=== PATIENT | male | born 1965 | race Caucasian/White ===

== ENCOUNTER 2017-01-03 14:19 | Observation (INO) | payer BC ==
[2017-01-03] MEDS: Sodium Chloride 0.9% 1000 ML 1,000 ML IV SCH ×3 (15:32→20:17)
[2017-01-03] MEDS: Levofloxacin 500MG/100ML D5W 100 ML IV SCH (15:37)
[2017-01-03] MEDS: solu-MEDROL 40 MG IV SCH ×2 (17:03→23:43)
[2017-01-03] MEDS: FLAGYL 500 MG IVPB 100 ML IV SCH ×2 (17:03→23:37)
--- NOTE | 2017-01-03 17:07 | XRAY ---
Indication: Lower abdominal/pelvic pain for 3-4 weeks. Diarrhea. Multiple contiguous axial images obtained through the abdomen and pelvis prior to and following 80 cc Isovue 370 contrast only. Comparison: None Lung bases demonstrates minimal bibasilar dependent atelectasis. Right base calcified granuloma. Heart is not enlarged. Noncontrasted images through the abdomen are negative for pathologic visceral calcifications/calculi. Noncontrasted stomach and bowel loops appear nonobstructed. There is mild scattered colonic fecal debris predominantly in the ascending, transverse, and proximal descending colon. Moderate circumferential wall thickening seen of the distal descending, entire sigmoid, and rectum favoring colitis. No free fluid/air. Postcontrast images demonstrates normal visceral enhancement and renal excretion. Remaining liver, gallbladder, pancreas, spleen, adrenal glands, kidneys, ureters, bladder, and aorta appear unremarkable. No pathologic retroperitoneal lymphadenopathy. Osseous structures intact with lumbosacral junction degenerative disc disease. Small fatty right inguinal hernia. Impression: 1. Noncontrast images negative for pathologic visceral calcifications/calculi. 2. CT features favoring descending, sigmoid, and rectal colitis. No perforation or complications. 3. Incidental fecal stasis and small fatty right inguinal hernia. CTDI 22.48
[2017-01-03] MEDS ORDERED: MEDICATION INTERVENTION MC PRN (17:24)
--- NOTE | 2017-01-03 18:19 | PCM.HP ---
History of Present Illness - Chief Complaint Chief Complaint: Dehydration History of Present Illness: is a 51 year old male pt with ulcerative colitis since 2001 who was doing well until Oct of this year. He started having increased stools up to 15/ day with increased bleeding. He did labs and started on po steroids, written by Dr. Dueñas GI in [place]. 6d ago he increased his steroid dose per Dr. Dueñas to 40mg prednisone daily and felt a little better over the weekend with firmer stools. He slept a lot over the weekend. This week continued with fatigue, had lower abd pain 5/10 with eating. Fever today to 101.7 so labs done (ordered by [facility]) and creatinine elevated. He was admitted for IV fluids and IV antibiotics. CT ab'd/pelvis is pending. - Review of Systems Constitutional: Fever Abdominal/Gastrointestinal: Abdominal Pain, Diarrhea, Hematochezia, Appetite Changes All Other Systems: Reviewed and Negative Medications & Allergies Home Medications: Home Medication List Atorvastatin Calcium [Lipitor] 10 mg PO DAILY 01/03/17 [History Confirmed ] Azathioprine [Imuran] 50 mg PO TID 01/03/17 [History Confirmed 01/03/17] Gemfibrozil 600 mg [Lopid 600 mg] 600 mg PO BID 01/03/17 [History Confirmed 01/03/17] Hyoscyamine Sulfate 0.125 mg [Anaspaz 0.125 mg] 0.125 mg PO Q4-6HPRN PRN [History Confirmed 01/03/17] Omeprazole 20 MG [Prilosec 20 mg] 20 mg PO DAILY 01/03/17 [History Confirmed ] Prednisone 20 mg [Deltasone 20 mg] 40 mg PO DAILY 01/03/17 [History Confirmed 01/03/17] Turmeric Root Extract [Turmeric] 250 mg PO TID 01/03/17 [History Confirmed 01/03] Allergies/Adverse Reactions: Allergies Allergy/AdvReac Type Severity Reaction Status Date / Time No Known Drug Allergies Allergy Verified 01/03/17 14:49 - Past Medical History Neurological History: No Pertinent History ENT History: No Pertinent History Cardiac History: High Cholesterol Respiratory History: No Pertinent History Endocrine Medical History: No Pertinent History Musculoskelatal History: No Pertinent History GI Medical History: Other History: No Pertinent History Pyscho-Social History: No Pertinent History Male Reproductive Disorders: No Pertinent History Comment: Ulcerative Colitis - Past Surgical History Past Surgical History: No - Social History Smoking Status: Former smoker Exposure to second hand smoke: No Alcohol: None Drug Use: none - Physical Exam Vital Signs: Vital Signs - 24 hr Temp Pulse Resp BP Pulse Ox 01/03/17 16:00 97.5 F 71 19 124/70 96 01/03/17 14:50 97.5 F 71 124/70 96 General Appearance: no apparent distress Neurologic Exam: alert, cooperative Eye Exam: eyes nml inspection Neck Exam: non-tender, supple, No lymphadenopathy Respiratory Exam: chest tenderness, lungs clear, No crackles/rales, No rhonchi, No wheezing Cardiovascular Exam: regular rate/rhythm, normal heart sounds, No murmur Gastrointestinal/Abdomen Exam: soft, other (hyperactive bowel sounds), No tenderness, No distention, No mass, No guarding Extremity Exam: normal inspection, No pedal edema, No swelling Skin Exam: normal color, warm, dry, No rash Results - Labs Lab/Micro Results: Lab Results-Last 24 Hours 01/03/17 Range/Units 15:33 Stl C. diff Tox B Gene NEGATIVE (NEGATIVE) C.difficile 027-[id number] PRESUMPTIVE NEGATIVE (NEGATIVE) - Radiology Impressions Radiology Exams & Impressions: Radiology Procedures Category Date Time Status ABDOMEN AND PELVIS W&WO CONTRA [CT] Urgent Exams 01/03/17 15:48 Completed Assessment/Plan (1) Ulcerative colitis Current Visit: Yes Status: Acute Assessment & Plan: treating for acute flare on chronic dz. IV flagyl and levaquin; IV solumedrol.wiht abd pain; ct pending then I will contact Dr. Dueñas. Code(s): K51.90 - ULCERATIVE COLITIS, UNSPECIFIED, WITHOUT COMPLICATIONS (2) Dehydration Current Visit: Yes Status: Acute Assessment & Plan: IV fluids. Code(s): E86.0 - DEHYDRATION (3) Renal insufficiency Current Visit: Yes Status: Acute Assessment & Plan: rechedck in a.m. (4) Hyperkalemia Current Visit: Yes Status: Acute Assessment & Plan: mild; recheck in a.m. Code(s): E87.5 - HYPERKALEMIA
[2017-01-03] MEDS ORDERED: AZATHIOPRINE 50 MG PO SCH (22:00)
[2017-01-04] MEDS: FLAGYL 500 MG IVPB 100 ML IV SCH ×2 (05:00→11:33)
[2017-01-04] MEDS: solu-MEDROL 40 MG IV SCH (05:00)
[2017-01-04] MEDS: Sodium Chloride 0.9% 1000 ML 1,000 ML IV SCH (05:09)
[2017-01-04 05:47] LABS: Mean Cell Volume 85.8 fl (78-100); Mean Platelet Volume 8.6 fl (6-9.5); Platelet Count 330 K/mm3 (150-450); Red Blood Count 4.51 M/mm3 (4.1-5.6); Red Cell Distribution Width 13.8 % (11.5-14.0); White Blood Count 7.8 K/mm3 (4.0-10.5)
[2017-01-04 05:58] LABS: Mean Corpuscular Hemoglobin 27.2 pg (26-32)
[2017-01-04 06:26] LABS: ANION GAP 11.1 MEQ/L (5-15); BLOOD UREA NITROGEN 13 mg/dL (9-20); CHLORIDE 105 mEq/L (98-107); Carbon Dioxide 27.7 mEq/L (21-32); Glucose 131 MG/DL (70-110); Potassium 4.2 mEq/L (3.5-5.1); SODIUM 140 mEq/L (136-145)
[2017-01-04 06:51] LABS: ANISOCYTOSIS 1+; Platelet Estimate NORMAL (NORMAL); Poikilocytosis 1+; Total Cells Counted 100
[2017-01-04] MEDS: Levofloxacin 500MG/100ML D5W 100 ML IV SCH (09:23)
[2017-01-04] MEDS ORDERED: NON-FORMULARY ITEM (Omeprazole 20 Mg [Prilosec 20 Mg] 20 MG) PO SCH (10:00)
[2017-01-04] MEDS ORDERED: Protonix 40MG Tablet PO SCH (10:00)
[2017-01-04 11:53] VITALS: BP 116/71; PULSE 70; O2SAT 94
--- NOTE | 2017-01-04 12:34 | PCM.DS ---
Discharge Summary Date of Admission: 01/03/17 14:19 Admitting Physician: KIM WHITE Primary Care Provider: KIM WHITE Allergies Allergies No Known Drug Allergies Allergy (Verified 01/03/17 14:49) Hospital Summary - Hospital Course Hospital Course: Pt with ulcerative colitis and diarrhea admitted directly from home c/o abd pain , fever, and sleeping too much, found to have renal insufficiency. He improved with IV fluids, IV levaquin and flagyl,a dn IV solumedrol. Not having abd pain with eating bland diet today. I spoke with his data acquisition technician Dr. Dueñas in [place] and he advised when d/c to send pt on 30mg prednisone BID. Pt will go home on po antibiotics. F/u with Dr. Dueñas as scheduled next week. - Vitals & Intake/Output Vital Signs: Vital Signs Temperature 97.6 F 01/04/17 11:52 Pulse Rate 70 01/04/17 11:52 Respiratory Rate 20 01/04/17 11:52 Blood Pressure 116/71 01/04/17 11:52 O2 Sat by Pulse Oximetry 94 L 01/04/17 11:52 Intake & Output: Intake & Output 01/02/17 01/03/17 01/04/17 01/05/17 11:59 11:59 11:59 11:59 Intake Total 4083 Balance 4083 Weight 90.293 kg - Lab Result Diagrams: 01/04/17 05:25 01/04/17 05:25 Lab Results-Last 24 Hrs: Lab Results-Last 24 Hours 01/03/17 01/04/17 01/04/17 Range/Units 15:33 05:25 05:25 WBC 7.8 (4.0-10.5) K/mm3 RBC 4.51 (4.1-5.6) M/mm3 Hgb 12.3 L (12.5-18.0) gm/dl Hct 38.7 L (42-50) % MCV 85.8 (78-100) fl MCH 27.2 (26-32) pg MCHC 31.8 L (32-36) g/dl RDW 13.8 (11.5-14.0) % Plt Count 330 (150-450) K/mm3 MPV 8.6 (6-9.5) fl Segmented Neutrophils 91 H (36.-66.) % Lymphocytes (Manual) 3 L (24-44) % Monocytes (Manual) 6 (0.0-12.0) % Platelet Estimate NORMAL (NORMAL) Poikilocytosis 1+ Anisocytosis 1+ Sodium 140 (136-145) mEq/L Potassium 4.2 (3.5-5.1) mEq/L Chloride 105 (98-107) mEq/L Carbon Dioxide 27.7 (21-32) mEq/L Anion Gap 11.1 (5-15) MEQ/L BUN 13 (9-20) mg/dL Creatinine 1.09 (0.55-1.30) mg/dl Estimated GFR > 60 ML/MIN Glucose 131 H (70-110) MG/DL Calcium 8.3 L (8.5-10.1) mg/dL Stl C. diff Tox B Gene NEGATIVE (NEGATIVE) C.difficile 027-NAP1-B1 PRESUMPTIVE NEGATIVE (NEGATIVE) - Radiology Exams Ordered Rad Exams-Entire Visit: Radiology Procedures Category Date Time Status ABDOMEN AND PELVIS W&WO CONTRA [CT] Urgent Exams 01/03/17 15:48 Completed Discharge Exam General Appearance: no apparent distress Neurologic Exam: alert, oriented x 3, cooperative Skin Exam: normal color, warm, dry Respiratory Exam: normal breath sounds, lungs clear, No crackles/rales, No rhonchi, No wheezing Cardiovascular Exam: regular rate/rhythm, normal heart sounds, No murmur Gastrointestinal/Abdomen Exam: soft, normal bowel sounds, No tenderness, No distention, No mass, No guarding, No rebound Extremity Exam: normal inspection, No pedal edema, No swelling Final Diagnosis/Problem List - Final Discharge Diagnosis/Problem (1) Ulcerative colitis Current Visit: Yes Status: Chronic Assessment & Plan: Home on 30mg prednisone po BID per DR. Dueñas. F/u with GI next Saturday as scheduled (outpatient). Home on po levaquin and flagyl as well. (2) Dehydration Current Visit: Yes Status: Resolved (3) Renal insufficiency Current Visit: Yes Status: Resolved Assessment & Plan: due to hypovolemia; resolved. (4) Hyperkalemia Current Visit: Yes Status: Resolved - Discharge Disposition: Home, Self-Care Condition: Stable Prescriptions: New Metronidazole [Flagyl] 500 mg PO TID #30 tablet Levofloxacin [Levaquin] 500 mg PO DAILY #10 tablet Prednisone 30 mg PO BID #84 tablet Continue Omeprazole 20 MG [Prilosec 20 mg] 20 mg PO DAILY Atorvastatin Calcium [Lipitor] 10 mg PO DAILY Gemfibrozil 600 mg [Lopid 600 mg] 600 mg PO BID Azathioprine [Imuran] 50 mg PO TID Hyoscyamine Sulfate 0.125 mg [Anaspaz 0.125 mg] 0.125 mg PO Q4-6HPRN PRN PRN Reason: bowel urgency Turmeric Root Extract [Turmeric] 250 mg PO TID Discontinued Prednisone 20 mg [Deltasone 20 mg] 40 mg PO DAILY
== END 2017-01-04 13:55 | disposition home or self-care (01) ==
LOC: MED SURG 14:19
PROVIDERS: ADMIT Family Medicine; ATTEND Family Medicine
DX: E86.0 Dehydration (principal); N28.9 Disorder of kidney and ureter, unspecified; E87.5 Hyperkalemia; Z79.899 Other long term (current) drug therapy
CPT/HCPCS: 36415; 74178; 80048; 85025; 87493; G0378; J1956; J2920; A9270-GY